=== PATIENT | female | born 1970 | race Caucasian/White ===

== ENCOUNTER → 2024-07-11 10:55 | Outpatient (REF) | payer BC, SELFPAY | LOC: RAD 10:55 | PROVIDERS: ATTENDING PHYSICIAN Obstetrics & Gynecology; FAMILY PHYSICIAN Family Medicine | DX: N93.9 Abnormal uterine and vaginal bleeding, unspecified (principal) | CPT/HCPCS: 76830; 76856 ==

== ENCOUNTER → 2024-08-08 13:21 | Outpatient (REF) | payer BC, SELFPAY | LOC: RAD 13:21 | PROVIDERS: ATTENDING PHYSICIAN Obstetrics & Gynecology; FAMILY PHYSICIAN Family Medicine | DX: R93.89 Abnormal findings on diagnostic imaging of other specified body structures (principal) | CPT/HCPCS: 76830; 76856 ==

== ENCOUNTER → 2024-08-27 10:10 | Outpatient (REF) | payer BC, SELFPAY | LOC: PAVMRI 10:10 | PROVIDERS: ATTENDING PHYSICIAN Physical Medicine & Rehabilitation; FAMILY PHYSICIAN Family Medicine | DX: M47.812 Spondylosis without myelopathy or radiculopathy, cervical region (principal) | CPT/HCPCS: 72050; 72141 ==

== ENCOUNTER → 2025-06-11 14:51 | Outpatient (REF) | payer BC, SELFPAY | LOC: HWRAD 14:51 | PROVIDERS: ATTENDING PHYSICIAN Otolaryngology Plastic Surgery within the Head & Neck; FAMILY PHYSICIAN Family Medicine | DX: D34 Benign neoplasm of thyroid gland (principal) | CPT/HCPCS: 76536 ==